=== PATIENT | male | born 2000 | race Caucasian/White ===

== ENCOUNTER 2022-11-12 10:01 | Emergency (ER) | payer SELFPAY ==
[2022-11-12] MEDS ORDERED: Ondansetron 4 MG/2 ML SDV IVPUSH ONE (10:28)
[2022-11-12] MEDS ORDERED: Sodium Chloride 0.9% 10 ML Syringe FLUSH PRN (10:28)
[2022-11-12] MEDS ORDERED: Sodium Chloride 0.9% 1,000 ML IV STA (10:28)
[2022-11-12] MEDS ORDERED: HYDROmorphone 0.5 MG/0.5 ML Syringe IVPUSH ONE (10:29)
[2022-11-12] MEDS ORDERED: Iopamidol 612 MG/ML 100 ML Bottle IVPUSH ONE (10:31)
[2022-11-12] MEDS ORDERED: Sodium Chloride 0.9% 10 ML Syringe FLUSH SCH (10:45)
[2022-11-12 11:32] LABS: CORONAVIRUS COVID-19 NAA NEGATIVE (NEGATIVE)
[2022-11-12] MEDS ORDERED: Metoclopramide 10 MG/2 ML SDV IVPUSH ONE (11:54)
[2022-11-12] MEDS ORDERED: Lactated Ringers 1,000 ML IV SCH (12:00)
== END 2022-11-12 14:15 | disposition home or self-care (01) ==
LOC: JD.ED 10:01
DX: A08.4 Viral intestinal infection, unspecified (principal); R04.0 Epistaxis; I10 Essential (primary) hypertension; Z72.0 Tobacco use; Z20.822 Contact with and (suspected) exposure to COVID-19
CPT/HCPCS: 0241U; 36415; 74177; 80053; 81001; 83690; 85025; 85610; 85730; 96361; 96374; 96375; 99284; J1170; J2405; J2765; J3490; J7030; J7120; Q9967